=== PATIENT | female | born 1945 | race Two or more races ===

== ENCOUNTER 2022-11-16 15:08 | Inpatient (IN) | payer OTHER ==
[~2022-11-16] VITALS: Ht 167.6 cm; Wt 51.3 kg
[2022-11-16] MEDS ORDERED: D5W/SOD CHL 0.45% 1,000 ML IV ONE (15:45)
[2022-11-16 16:21] LABS: Basophils # (auto) 0 10 ^3/uL (0-0.2); Basophils % (auto) 0.4 % (0.0-2.0); Eosinophils # (auto) 0 10 ^3/uL (0-0.8); Eosinophils % (auto) 0.5 % (0.0-7.0); Hematocrit 44.6 % (36.0-46.0); Hemoglobin 14.9 g/dL (12.2-16.2); Lymphocytes # (auto) 0.8 10 ^3/uL (0.4-5.4); Mean Corpuscular Hemoglobin 29.2 pg (28.0-32.0); Mean Corpuscular Hgb Conc. 33.4 g/dL (32.0-36.0); Mean Corpuscular Volume 87.5 fL (80.0-100.0); Monocytes # (auto) 0.3 10 ^3/uL (0-1.3); Monocytes % (auto) 5.5 % (0.0-12.0); Neutrophils # (auto) 4.9 10 ^3/uL (1.6-8.6); Neutrophils % (auto) 80.6 % (37.0-80.0); Nucleated Red Blood Cells % 0.1 %; Red Cell Distribution Width 14.1 % (11.8-14.3); White Blood Cell 6.1 10^3/uL (4.4-10.8)
[2022-11-16 16:29] LABS: Albumin 3.7 g/dL (3.4-5.0); Calcium 7.9 mg/dL (8.5-10.1)
[2022-11-16 16:33] LABS: BUN/Creatinine Ratio 10.4 (10.0-20.0); Bilirubin, Total 0.6 mg/dL (0.2-1.0); Total Protein 7.6 g/dL (6.4-8.2)
[2022-11-16 16:40] LABS: Potassium 2.8 mmol/L (3.5-5.1)
[2022-11-16 16:44] LABS: Urine Bacteria FEW /hpf (None Seen); Urine Blood Negative /uL (Negative); Urine Specific Gravity 1.007 (1.001-1.035); Urine WBC <1 /hpf (0 - 5)
[2022-11-16] MEDS ORDERED: POTASSIUM CHL 20 Meq TABLET PO ONE (17:15)
[2022-11-16] MEDS ORDERED: POTASSIUM CHL 20MEQ/100ML 100 ML IV ONE (17:15)
[2022-11-16] MEDS ORDERED: HYDROcodone-ACET 5/325MG TAB PO PRN (21:15)
[2022-11-16] MEDS ORDERED: ACETAMINOPHEN 325 MG TAB PO PRN (21:15)
[2022-11-16] MEDS ORDERED: ONDANSETRON HCL 4 MG/2 ML VIAL IV PRN (21:15)
[2022-11-16] MEDS ORDERED: DEXTROSE (50%) 50ML SYRG IV PRN (21:15)
[2022-11-16] MEDS ORDERED: hydrALAZINE HCL 20 MG/ML VL IV PRN (21:15)
[2022-11-16] MEDS ORDERED: DOCUSATE SOD 100 MG CAP PO PRN (21:15)
[2022-11-16] MEDS ORDERED: MORPHINE SULFATE INJ 2 MG/ml SYRG IV PRN (21:45)
[2022-11-16] MEDS: SODIUM CHLOR 0.9% PF (SALINE LOCK) 10ML VIAL/SYR IV SCH (21:45)
[2022-11-16] MEDS ORDERED: NITROGLYCERIN 0.4 MG SL TAB SL PRN (21:45)
[2022-11-16] MEDS: ACCU-CHEK COMFORT CURVE STRIP VI SCH (21:59)
[2022-11-16] MEDS: InsuLIN REG 1unit/0.01ml Soln (100units/ml) SC SCH (22:04)
[2022-11-17 05:04] LABS: Basophils # (auto) 0 10 ^3/uL (0-0.2); Basophils % (auto) 0.5 % (0.0-2.0); Eosinophils # (auto) 0.1 10 ^3/uL (0-0.8); Eosinophils % (auto) 1.8 % (0.0-7.0); Hematocrit 41.1 % (36.0-46.0); Hemoglobin 14.1 g/dL (12.2-16.2); Lymphocytes % (auto) 24.4 % (10.0-50.0); Mean Corpuscular Hemoglobin 29.7 pg (28.0-32.0); Mean Corpuscular Hgb Conc. 34.2 g/dL (32.0-36.0); Mean Corpuscular Volume 86.7 fL (80.0-100.0); Monocytes # (auto) 0.7 10 ^3/uL (0-1.3); Monocytes % (auto) 8.9 % (0.0-12.0); Neutrophils # (auto) 5.4 10 ^3/uL (1.6-8.6); Neutrophils % (auto) 64.4 % (37.0-80.0); Nucleated Red Blood Cells % 0.1 %; Red Blood Cells 4.74 10^6/uL (4.0-5.20); Red Cell Distribution Width 14.7 % (11.8-14.3); White Blood Cell 8.3 10^3/uL (4.4-10.8)
[2022-11-17 05:17] LABS: Calcium 8.1 mg/dL (8.5-10.1); Potassium 3.1 mmol/L (3.5-5.1)
[2022-11-17 05:24] LABS: Albumin 3.4 g/dL (3.4-5.0); BUN/Creatinine Ratio 14.9 (10.0-20.0); Bilirubin, Total 0.7 mg/dL (0.2-1.0); Total Protein 6.8 g/dL (6.4-8.2)
[2022-11-17] MEDS: SODIUM CHLOR 0.9% PF (SALINE LOCK) 10ML VIAL/SYR IV SCH ×3 (06:05→18:16)
[2022-11-17] MEDS: InsuLIN REG 1unit/0.01ml Soln (100units/ml) SC SCH ×4 (06:33→21:31)
[2022-11-17] MEDS: ACCU-CHEK COMFORT CURVE STRIP VI SCH ×4 (06:33→21:30)
[2022-11-17] MEDS: POTASSIUM CHL 20 Meq TABLET PO ONE ×2 (07:13→08:18)
[2022-11-17] MEDS ORDERED: GLIM4TAB42 PO (12:50)
[2022-11-17] MEDS ORDERED: LISI2.5T47 PO (12:50)
[2022-11-17] MEDS ORDERED: GABA-1250 PO (12:50)
[2022-11-17] MEDS ORDERED: METF-372 PO (12:50)
[2022-11-17] MEDS ORDERED: EMPA1TAB3 PO (12:50)
[2022-11-17 14:15] VITALS: BP 119/52
[2022-11-17 17:00] VITALS: BP 105/49
[2022-11-17 17:53] VITALS: BP 105/49
[2022-11-17 22:00] VITALS: BP 108/57
[2022-11-18 05:00] VITALS: BP 103/48
[2022-11-18] MEDS: ACCU-CHEK COMFORT CURVE STRIP VI SCH ×4 (06:18→21:22)
[2022-11-18] MEDS: SODIUM CHLOR 0.9% PF (SALINE LOCK) 10ML VIAL/SYR IV SCH ×3 (06:18→21:23)
[2022-11-18] MEDS: InsuLIN REG 1unit/0.01ml Soln (100units/ml) SC SCH ×4 (06:19→21:27)
[2022-11-18 08:47] VITALS: BP 114/55
[2022-11-18 12:26] VITALS: BP 132/66
[2022-11-18 16:56] VITALS: BP 114/55
[2022-11-18 20:00] VITALS: BP 110/50
[2022-11-18 22:00] VITALS: BP 110/50
[2022-11-19 05:00] VITALS: BP 108/61
[2022-11-19] MEDS: SODIUM CHLOR 0.9% PF (SALINE LOCK) 10ML VIAL/SYR IV SCH ×3 (06:17→21:14)
[2022-11-19] MEDS: ACCU-CHEK COMFORT CURVE STRIP VI SCH ×4 (06:22→21:17)
[2022-11-19] MEDS: InsuLIN REG 1unit/0.01ml Soln (100units/ml) SC SCH ×4 (06:22→21:18)
[2022-11-19 08:41] VITALS: BP 115/60
[2022-11-19 12:47] VITALS: BP 110/61
[2022-11-19 17:00] VITALS: BP 116/54
[2022-11-19 22:00] VITALS: BP 115/68
[2022-11-20 05:00] VITALS: BP 126/55
[2022-11-20] MEDS: SODIUM CHLOR 0.9% PF (SALINE LOCK) 10ML VIAL/SYR IV SCH ×3 (06:08→21:46)
[2022-11-20] MEDS: ACCU-CHEK COMFORT CURVE STRIP VI SCH ×4 (06:08→17:59)
[2022-11-20] MEDS: InsuLIN REG 1unit/0.01ml Soln (100units/ml) SC SCH ×4 (06:08→21:52)
[2022-11-20 09:00] VITALS: BP 129/61
[2022-11-20 13:00] VITALS: BP 146/59
[2022-11-20 17:00] VITALS: BP 127/58
[2022-11-20 22:00] VITALS: BP 118/66
[2022-11-21 05:00] VITALS: BP 127/73
[2022-11-21] MEDS: ACCU-CHEK COMFORT CURVE STRIP VI SCH ×4 (05:57→22:16)
[2022-11-21] MEDS: SODIUM CHLOR 0.9% PF (SALINE LOCK) 10ML VIAL/SYR IV SCH ×3 (05:57→22:16)
[2022-11-21] MEDS: InsuLIN REG 1unit/0.01ml Soln (100units/ml) SC SCH ×4 (05:57→22:17)
[2022-11-21 08:10] VITALS: BP 121/63
[2022-11-21 08:52] VITALS: BP 116/66
[2022-11-21 12:49] VITALS: BP 117/68
[2022-11-21 17:05] VITALS: BP 102/84
[2022-11-21 21:56] VITALS: BP 102/46
[2022-11-21] MEDS: Glucerna Carbsteady SHAKE Vanilla 8oz PO SCH (22:16)
[2022-11-22 05:01] VITALS: BP 100/56
[2022-11-22] MEDS: SODIUM CHLOR 0.9% PF (SALINE LOCK) 10ML VIAL/SYR IV SCH ×3 (06:04→21:30)
[2022-11-22] MEDS: InsuLIN REG 1unit/0.01ml Soln (100units/ml) SC SCH ×4 (06:05→21:27)
[2022-11-22] MEDS: ACCU-CHEK COMFORT CURVE STRIP VI SCH ×4 (06:05→21:29)
[2022-11-22 06:41] LABS: Potassium 4.4 mmol/L (3.5-5.1)
[2022-11-22 06:48] LABS: Calcium 8.6 mg/dL (8.5-10.1)
[2022-11-22 09:00] VITALS: BP 111/70
[2022-11-22] MEDS: Glucerna Carbsteady SHAKE Vanilla 8oz PO SCH ×2 (09:30→21:29)
[2022-11-22 13:01] VITALS: BP 113/59
[2022-11-22 16:50] VITALS: BP 104/56
[2022-11-22 22:00] VITALS: BP 113/52
[2022-11-23 05:00] VITALS: BP 103/54
[2022-11-23] MEDS: SODIUM CHLOR 0.9% PF (SALINE LOCK) 10ML VIAL/SYR IV SCH ×2 (06:10→11:19)
[2022-11-23] MEDS: InsuLIN REG 1unit/0.01ml Soln (100units/ml) SC SCH ×2 (06:10→11:18)
[2022-11-23] MEDS: ACCU-CHEK COMFORT CURVE STRIP VI SCH ×2 (06:10→11:19)
[2022-11-23 06:56] LABS: BUN/Creatinine Ratio 40.4 (10.0-20.0); Calcium 8.7 mg/dL (8.5-10.1); Potassium 4.6 mmol/L (3.5-5.1)
[2022-11-23 08:22] VITALS: BP 125/52
[2022-11-23 09:00] VITALS: BP 125/54
[2022-11-23] MEDS: Glucerna Carbsteady SHAKE Vanilla 8oz PO SCH (10:00)
[2022-11-23 13:00] VITALS: BP 130/64
[2022-11-23 15:33] VITALS: BP 130/64
[2022-11-23 17:23] LABS: Urine Bacteria FEW /hpf (None Seen); Urine Blood Negative /uL (Negative); Urine Specific Gravity 1.016 (1.001-1.035); Urine WBC 3 /hpf (0 - 5)
[2022-11-24 06:07] LABS: RPR Non Reactive (Non Reactive)
[2022-11-24] MEDS ORDERED: ERGO1CAP23 PO (08:28)
[2022-11-24] MEDS ORDERED: [UNRECOGNIZED DRUG - CODE] PO (08:28)
== END 2022-11-23 16:46 | disposition home health service (06) | DRG 637 ==
LOC: EDBD 15:08 → ER 15:08 → OVERFLOW 21:44 → WEST WING 11-17 14:25
PROVIDERS: ADMIT Nurse Practitioner Family; ATTEND Internal Medicine
DX: E11.649 Type 2 diabetes mellitus with hypoglycemia without coma (principal); G93.41 Metabolic encephalopathy; I10 Essential (primary) hypertension; Z79.4 Long term (current) use of insulin
CPT/HCPCS: 36415; 70450; 80048; 80053; 80061; 81001; 82043; 82140; 82306; 82607; 82746; 82962; 83036; 84443; 85025; 86592; 96360; 96372; 97110; 97116; 97163; 97530; G0378; J1815; J3480

== ENCOUNTER 2022-12-02 17:36 | Inpatient (IN) | payer OTHER ==
[~2022-12-02] VITALS: Ht 167.6 cm; Wt 43.3 kg
[~2022-12-02 17:36] MED LIST: EMPA1TAB3 PO; ERGO1CAP23 PO; GABA-1250 PO; GLIM4TAB42 PO; LISI2.5T47 PO; METF-372 PO; [UNRECOGNIZED DRUG - CODE] PO
[2022-12-03] VITALS (9 sets, daily range): BP systolic 110–124; BP diastolic 54–68; PULSE 73–93; RESP 16–18; TEMP 97.5–98.6; O2SAT 94–95
[2022-12-03] MEDS ORDERED: hydrALAZINE HCL 20 MG/ML VL IV PRN (00:30)
[2022-12-03] MEDS ORDERED: HYDROcodone-ACET 5/325MG TAB PO PRN (00:30)
[2022-12-03] MEDS ORDERED: ACETAMINOPHEN 325 MG TAB PO PRN (00:30)
[2022-12-03] MEDS ORDERED: MORPHINE SULFATE INJ 2 MG/ml SYRG IV PRN (00:30)
[2022-12-03] MEDS ORDERED: ONDANSETRON HCL 4 MG/2 ML VIAL IV PRN (00:30)
[2022-12-03] MEDS ORDERED: DOCUSATE SOD 100 MG CAP PO PRN (00:30)
[2022-12-03] MEDS ORDERED: NITROGLYCERIN 0.4 MG SL TAB SL PRN (00:30)
[2022-12-03] MEDS ORDERED: DEXTROSE (50%) 50ML SYRG IV PRN (00:30)
[2022-12-03] MEDS: SODIUM CHLORIDE 0.9% 1,000 ML IV SCH ×2 (05:16→21:54)
[2022-12-03] MEDS: ACCU-CHEK COMFORT CURVE STRIP VI SCH ×4 (06:15→22:09)
[2022-12-03 06:22] LABS: Basophils # (auto) 0 10 ^3/uL (0-0.2); Basophils % (auto) 0.3 % (0.0-2.0); Eosinophils # (auto) 0 10 ^3/uL (0-0.8); Eosinophils % (auto) 0.1 % (0.0-7.0); Hematocrit 44.8 % (36.0-46.0); Hemoglobin 14.3 g/dL (12.2-16.2); Lymphocytes # (auto) 1.2 10 ^3/uL (0.4-5.4); Lymphocytes % (auto) 10.1 % (10.0-50.0); Mean Corpuscular Hemoglobin 29.3 pg (28.0-32.0); Mean Corpuscular Hgb Conc. 31.8 g/dL (32.0-36.0); Monocytes % (auto) 8.5 % (0.0-12.0); Neutrophils # (auto) 9.5 10 ^3/uL (1.6-8.6); Nucleated Red Blood Cells % 0.1 %; Red Blood Cells 4.87 10^6/uL (4.0-5.20); Red Cell Distribution Width 15.4 % (11.8-14.3); White Blood Cell 11.7 10^3/uL (4.4-10.8)
[2022-12-03 06:24] LABS: Potassium 4.4 mmol/L (3.5-5.1)
[2022-12-03 06:30] LABS: Albumin 3.1 g/dL (3.4-5.0); BUN/Creatinine Ratio 52.8 (10.0-20.0); Bilirubin, Total 0.5 mg/dL (0.2-1.0); Calcium 8.5 mg/dL (8.5-10.1); Total Protein 7.2 g/dL (6.4-8.2)
[2022-12-03] MEDS: InsuLIN REG 1unit/0.01ml Soln (100units/ml) SC SCH ×4 (06:30→22:02)
[2022-12-03 13:23] LABS: Urine Bacteria MOD /hpf (None Seen); Urine Blood Negative /uL (Negative); Urine Mucus FEW (None Seen); Urine WBC 2 /hpf (0 - 5)
[2022-12-04] VITALS (7 sets, daily range): BP systolic 100–122; BP diastolic 51–66; PULSE 60–87; RESP 16–20; TEMP 97.9–98.6; O2SAT 94–97
[2022-12-04] MEDS: ACCU-CHEK COMFORT CURVE STRIP VI SCH ×4 (06:38→22:00)
[2022-12-04] MEDS: InsuLIN REG 1unit/0.01ml Soln (100units/ml) SC SCH ×4 (06:40→22:01)
[2022-12-04 07:07] LABS: Basophils # (auto) 0 10 ^3/uL (0-0.2); Basophils % (auto) 0.1 % (0.0-2.0); Eosinophils # (auto) 0.2 10 ^3/uL (0-0.8); Eosinophils % (auto) 1.9 % (0.0-7.0); Hematocrit 41.3 % (36.0-46.0); Hemoglobin 13.6 g/dL (12.2-16.2); Lymphocytes # (auto) 1.3 10 ^3/uL (0.4-5.4); Lymphocytes % (auto) 14.9 % (10.0-50.0); Mean Corpuscular Hemoglobin 29.6 pg (28.0-32.0); Mean Corpuscular Volume 89.9 fL (80.0-100.0); Monocytes # (auto) 0.7 10 ^3/uL (0-1.3); Monocytes % (auto) 8.2 % (0.0-12.0); Neutrophils # (auto) 6.7 10 ^3/uL (1.6-8.6); Neutrophils % (auto) 74.9 % (37.0-80.0); Nucleated Red Blood Cells % 0.1 %; Red Cell Distribution Width 15.3 % (11.8-14.3); White Blood Cell 8.9 10^3/uL (4.4-10.8)
[2022-12-04 07:16] LABS: Albumin 2.7 g/dL (3.4-5.0)
[2022-12-04 07:21] LABS: BUN/Creatinine Ratio 35.3 (10.0-20.0); Bilirubin, Total 0.5 mg/dL (0.2-1.0); Total Protein 6.4 g/dL (6.4-8.2)
[2022-12-04] MEDS: cefTRIAXone 1GM/50ML D5W 50 ML IV SCH (09:29)
[2022-12-04] MEDS: ASPirin 81 mg TAB PO SCH (09:33)
[2022-12-04] MEDS: ENOXAPARIN SOD 40 MG/0.4 ML SYRINGE SC SCH (09:34)
[2022-12-04 14:49] LABS: Urine Bacteria NONE SEEN /hpf (None Seen); Urine Blood TRACE /uL (Negative); Urine Specific Gravity 1.029 (1.001-1.035); Urine WBC 2 /hpf (0 - 5)
[2022-12-04] MEDS ORDERED: CYANOCOBALAMIN (B-12) 1000 MCG/1 ML VIAL IM ONE (15:45)
[2022-12-04] MEDS ORDERED: D5W/SOD CHLO 0.9% 1,000 ML IV SCH (16:30)
[2022-12-04] MEDS: D5W/SOD CHL 0.45% 1,000 ML IV SCH (17:06)
[2022-12-04] MEDS ORDERED: CLOPIDOGREL 300 MG TAB PO ONE (17:30)
[2022-12-04] MEDS: ATORVASTATIN 20 MG TAB PO SCH (21:59)
[2022-12-05] VITALS (7 sets, daily range): BP systolic 95–112; BP diastolic 48–61; PULSE 60–72; RESP 16–18; TEMP 97.9–98.7; O2SAT 95–96
[2022-12-05] MEDS: D5W/SOD CHL 0.45% 1,000 ML IV SCH (06:29)
[2022-12-05] MEDS: ACCU-CHEK COMFORT CURVE STRIP VI SCH ×4 (06:30→22:06)
[2022-12-05] MEDS: InsuLIN REG 1unit/0.01ml Soln (100units/ml) SC SCH ×4 (06:31→22:10)
[2022-12-05 09:15] LABS: Basophils # (auto) 0 10 ^3/uL (0-0.2); Basophils % (auto) 0.3 % (0.0-2.0); Eosinophils # (auto) 0.2 10 ^3/uL (0-0.8); Eosinophils % (auto) 2.8 % (0.0-7.0); Hematocrit 38.3 % (36.0-46.0); Hemoglobin 12.7 g/dL (12.2-16.2); Lymphocytes # (auto) 1.4 10 ^3/uL (0.4-5.4); Mean Corpuscular Hemoglobin 29.3 pg (28.0-32.0); Mean Corpuscular Hgb Conc. 33.2 g/dL (32.0-36.0); Mean Corpuscular Volume 88.2 fL (80.0-100.0); Monocytes # (auto) 0.6 10 ^3/uL (0-1.3); Monocytes % (auto) 8.8 % (0.0-12.0); Neutrophils # (auto) 4.4 10 ^3/uL (1.6-8.6); Neutrophils % (auto) 67.1 % (37.0-80.0); Nucleated Red Blood Cells % 0.2 %; Red Blood Cells 4.35 10^6/uL (4.0-5.20); Red Cell Distribution Width 14.5 % (11.8-14.3); White Blood Cell 6.6 10^3/uL (4.4-10.8)
[2022-12-05 09:32] LABS: Albumin 2.6 g/dL (3.4-5.0); BUN/Creatinine Ratio 27.8 (10.0-20.0); Calcium 7.8 mg/dL (8.5-10.1)
[2022-12-05 09:34] LABS: Bilirubin, Total 0.6 mg/dL (0.2-1.0); Total Protein 5.6 g/dL (6.4-8.2)
[2022-12-05] MEDS: ASPirin 81 mg TAB PO SCH (09:54)
[2022-12-05] MEDS: cefTRIAXone 1GM/50ML D5W 50 ML IV SCH (09:54)
[2022-12-05] MEDS: ENOXAPARIN SOD 40 MG/0.4 ML SYRINGE SC SCH (09:54)
[2022-12-05] MEDS: CLOPIDOGREL BISULFATE 75 MG TAB PO SCH (09:54)
[2022-12-05] MEDS ORDERED: SOD CHL 0.9%/ KCL 20MEQ 1,000 ML IV SCH (11:15)
[2022-12-05] MEDS ORDERED: DOCUSATE SOD 100 MG CAP PO ONE (11:15)
[2022-12-05] MEDS ORDERED: POTASSIUM CHL 20 Meq TABLET PO ONE (11:30)
[2022-12-05] MEDS: ATORVASTATIN 20 MG TAB PO SCH (22:04)
[2022-12-05] MEDS ORDERED: CYANOCOBALAMIN (B-12) 1000 MCG/1 ML VIAL IM ONE (23:00)
[2022-12-06 05:00] VITALS: BP 108/48; PULSE 62; RESP 18; TEMP 98; O2SAT 98
[2022-12-06] MEDS: ACCU-CHEK COMFORT CURVE STRIP VI SCH ×3 (06:43→17:31)
[2022-12-06] MEDS: InsuLIN REG 1unit/0.01ml Soln (100units/ml) SC SCH ×3 (06:50→17:31)
[2022-12-06 08:03] LABS: Basophils # (auto) 0 10 ^3/uL (0-0.2); Basophils % (auto) 0.4 % (0.0-2.0); Eosinophils # (auto) 0.2 10 ^3/uL (0-0.8); Eosinophils % (auto) 2.5 % (0.0-7.0); Hematocrit 41.2 % (36.0-46.0); Hemoglobin 13.6 g/dL (12.2-16.2); Lymphocytes # (auto) 1.7 10 ^3/uL (0.4-5.4); Lymphocytes % (auto) 27.3 % (10.0-50.0); Mean Corpuscular Hemoglobin 29.2 pg (28.0-32.0); Mean Corpuscular Volume 88.4 fL (80.0-100.0); Monocytes # (auto) 0.6 10 ^3/uL (0-1.3); Neutrophils # (auto) 3.8 10 ^3/uL (1.6-8.6); Neutrophils % (auto) 60.8 % (37.0-80.0); Nucleated Red Blood Cells % 0.4 %; Red Blood Cells 4.66 10^6/uL (4.0-5.20); Red Cell Distribution Width 14.3 % (11.8-14.3); White Blood Cell 6.2 10^3/uL (4.4-10.8)
[2022-12-06 08:21] LABS: Calcium 8.3 mg/dL (8.5-10.1); Potassium 3.7 mmol/L (3.5-5.1)
[2022-12-06 08:30] VITALS: BP 114/53; PULSE 66; PULSE 75; RESP 18; O2SAT 95
[2022-12-06 09:00] VITALS: BP 114/53; PULSE 66; RESP 18; TEMP 97.5; O2SAT 95
[2022-12-06] MEDS: ENOXAPARIN SOD 40 MG/0.4 ML SYRINGE SC SCH (09:11)
[2022-12-06] MEDS: ASPirin 81 mg TAB PO SCH (09:11)
[2022-12-06] MEDS: cefTRIAXone 1GM/50ML D5W 50 ML IV SCH (09:11)
[2022-12-06] MEDS: CLOPIDOGREL BISULFATE 75 MG TAB PO SCH (09:11)
[2022-12-06] MEDS ORDERED: CYANOCOBALAMIN 500 MCG TAB PO SCH (10:00)
[2022-12-06 13:00] VITALS: BP 111/45; PULSE 79; RESP 17; TEMP 98.2; O2SAT 94
[2022-12-06 17:16] VITALS: BP 106/57; PULSE 71; RESP 18; TEMP 98.4; O2SAT 95
== END 2022-12-06 17:55 | DRG 64 ==
LOC: TELE-WESTW 22:40 → WEST WING 12-06 16:06
PROVIDERS: ADMIT Internal Medicine; ATTEND Student in an Organized Health Care Education/Training Program
DX: I63.9 Cerebral infarction, unspecified (principal); G93.41 Metabolic encephalopathy; E87.1 Hypo-osmolality and hyponatremia; E87.20 Acidosis, unspecified; N17.9 Acute kidney failure, unspecified; N39.0 Urinary tract infection, site not specified; E87.0 Hyperosmolality and hypernatremia; I10 Essential (primary) hypertension; H91.90 Unspecified hearing loss, unspecified ear; E87.8 Other disorders of electrolyte and fluid balance, not elsewhere classified; E11.649 Type 2 diabetes mellitus with hypoglycemia without coma; E11.65 Type 2 diabetes mellitus with hyperglycemia; E53.8 Deficiency of other specified B group vitamins; E86.0 Dehydration; Z20.822 Contact with and (suspected) exposure to COVID-19; R13.10 Dysphagia, unspecified; Z86.73 Personal history of transient ischemic attack (TIA), and cerebral infarction without residual deficits; Z79.82 Long term (current) use of aspirin; Z79.899 Other long term (current) drug therapy; Z83.3 Family history of diabetes mellitus
CPT/HCPCS: 36415; 70551; 80048; 80053; 81001; 82607; 82962; 83735; 83880; 83930; 83935; 85025; 87081; 87086; 87426; 92507; 92610; 93886; 95819; 97110; 97116; 97163; G0378; J0696; J1815